=== PATIENT | male | born 1985 | race Caucasian/White ===

== ENCOUNTER → 2018-01-18 | Outpatient (CLI) | payer OTHER ==
[~2018-01-18] MED LIST: NAPROSYN500 MG PO; ZOFRAN ODT4 MG PO
== END ==
LOC: ULTRA 07:54
DX: R10.32 Left lower quadrant pain (principal)

== ENCOUNTER 2019-03-06 08:29 | Emergency (ER) | payer OTHER ==
[~2019-03-06] VITALS: Ht 177.8 cm; Wt 81.7 kg
[2019-03-06 09:09] LABS: HEMATOCRIT 49.3 % (42.0-52.0); HEMOGLOBIN 17.4 gm/dL (14.0-18.0); MCH 32.3 pg (26.0-34.0); MCHC 35.2 g/dL (28.0-37.0); MCV 91.6 fL (80.0-100.0); RBC 5.39 mil/uL (4.50-6.00); RDW 12.5 % (10.5-14.5); WBC 7.2 thou/uL (4.0-11.0)
[2019-03-06 09:17] LABS: CALCIUM 9.4 mg/dL (8.5-10.1); CREATININE 0.8 mg/dL (0.7-1.3); POTASSIUM 4.2 mmol/L (3.5-5.1)
[2019-03-06 10:10] VITALS: BP 120/81
== END 2019-03-06 10:10 | disposition home or self-care (01) ==
LOC: ER 08:29
PROVIDERS: Emergency Medicine
DX: M54.2 Cervicalgia (principal); R04.2 Hemoptysis; F17.210 Nicotine dependence, cigarettes, uncomplicated

== ENCOUNTER → 2019-03-06 | Outpatient (CLI) | payer OTHER | LOC: ULTRA 12:34 | DX: R59.1 Generalized enlarged lymph nodes (principal) ==

== ENCOUNTER → 2019-03-12 | Outpatient (CLI) | payer OTHER ==
--- NOTE | 2019-03-14 17:06 | PATH ---
[facility] [address] [place] [address] PATHOLOGY RPT PROCEDURE Name: DEZ NIEVES YUDITH Room #: REG CLI MCallie.#: [id number] ������������������ Admission: 03/12/19 ������������������ Date of : 83 Discharge: Report #: [id number] Path Case #: [id number] [facility] Accession Number: [id number] . 01 Material submitted: . lymph node - RIGHT LYMPH NODE, NECK. Modifiers: right, neck . 01 Clinical history: . Right lymph nodes enlarged x 3 months . 02 Diagnosis: Lymph node, neck lymph node, needle core biopsy: - Reactive lymph node with sinus histiocytosis (please see comment). (IUV:millinery blocker; 03/14/2019) . Please see included [facility] report [id number]. AZJ/03/14/2019 . 02 Comment: Portion of this sample obtained at the time of the procedure was sent for flow cytometric analysis, result number [id number] (please see separate report for details). That analysis showed no significant lymphoid immunophenotypic abnormalities detected. . Morphologically, the lymph node tissue shows germinal centers and small lymphocytes. Occasional to rare poorly formed granuloma is identified. Giant cells are not present to support a well-formed granuloma. There are no atypical or markedly enlarged lymphocytes, there is no nuclear pleomorphism present. There are no Moises-Lisa cells identified as well. Overall, morphologically, the lymph node appears reactive. . Acid fast bacillus and Gomori methenamine silver stains performed on A1 are negative for mycobacterial as well as fungal elements, respectively. . Dr. Desirae Maguire has seen this case and concurs with my diagnosis. . The differential diagnosis for the poorly formed granulomatous inflammation may include reactive changes, Bartonella henselae infection (cat scratch disease), atypical mycobacterial as well as mycobacterial infections, fungal infections, and a reaction to drug/medication effect as well. Sarcoidosis-like granulomas are not identified. . Please note sample represents a minute portion of a larger lesion and may not be entirely bilingual sales representative. Clinical correlation is required. . (IUV:millinery blocker; 03/14/2019) . [address] [address] PATHOLOGY RPT PROCEDURE Name: DEZ NIEVES Room #: REG CL Teo#: [id number] ������������������ Admission: 03/12/19 ������������������ Date of : 83 Discharge: Report #: [id number] Path Case #: [id number] Electronically signed: . Iliana Woods MD, Pathologist NPI- [id number] . 01 Gross description: . The specimen is received in formalin, labeled "Dez Nieves, right neck node biopsy", are several roca fragments of needle cores measuring 0.7 x 0.2 x 0.1 cm in aggregate. The specimen is entirely submitted in A1-A2. Also received is an RPMI tube labeled with patient name and "right lymph node BX", consist of a minute soft tissue fragment. This is forwarded for additional studies. (SWS; 03/12/2019) . . . . SHS/SHS . 02 Microscopic: . Special studies report received from [facility], [address] [place] [address], [address], [place], [address], on case [id number], labeled with their number [id number], dated 03/14/2019. . Flow Cytometry: Hematologic Neoplasia Assessment . Clinical History Enlarged lymph nodes, right . Indication for Study Evaluation for lymphadenopathy . Specimen Lymph Node, Right . Viability 88% (7AAD exclusion) . Interpretation Lymph Node, Right: - No significant lymphoid immunophenotypic abnormalities detected (see comment). . Comments There are no significant immunophenotypic abnormalities in this specimen. It is of note that non- hematolymphoid neoplasms, Hodgkin lymphoma, some T-cell lymphomas and some large cell lymphomas cannot be totally excluded based solely on flow cytometry analysis. Correlation with available clinical, laboratory, and morphologic data is recommended. [address] [address] PATHOLOGY RPT PROCEDURE Name: DEZ NIEVES Room #: REG [facility]#: [id number] ������������������ Admission: 03/12/19 ������������������ Date of : 83 Discharge: Report #: [id number] Path Case #: [id number] . Populations Analyzed Lymphocytes: 84% B-cells: 17.4%, polytypic/polyclonal sIg light chain pattern T-cells: no significant abnormalities of the markers tested CD4:CD8: 6.3 NK cells: 0.6% CD45 Negative 16% No significant reactivity with the markers tested Events/Debris: (may represent non-hematolymphoid cells, degenerated cells, debris, unlysed red blood cells, etc.) . Morphologic Evaluation A slide was reviewed for auditor/quality purposes only. . Specimen Description Total Cell Yield: 0.59 X 10 and 6 . Reagent(s) Used CD2, CD3, CD4, CD5, CD7, CD8, CD10, CD11b, CD19, CD20, CD23, CD30, CD38, CD43, CD45, CD56, CD57, FMC-7, HLA-DR, kappa, lambda . at [facility] [employer] Britany Hernández MD Pathologist . . Intended Use Flow cytometry is optimally used to immunophenotypically characterize abnormal populations when they are detected. Negative flow cytometry results do not exclude lymphoma or neoplasia. Possible false negative flow cytometry results may occur in, but are not limited to, the following: neoplastic cells in Hodgkin lymphoma are not typically adequately represented by routine clinical flow cytometry; neoplastic cells may be lost or inadequately represented due to degeneration, sample processing, sampling artifact, or patchy involvement; plasma cells are typically underrepresented by flow cytometry; immature cells/blasts may be underrepresented due to hemodilution; myeloproliferative disorders and low grade myelodysplasia may not have immunophenotypic abnormalities or increased blasts. Correlation with all available clinical, laboratory, and morphologic data is always necessary to assess for the possibility of false negative flow cytometry results and to establish a diagnosis. Each marker in this analysis was used to assess for potential antigenic abnormalities or to evaluate detected abnormalities. . Disclaimer(s) This test was performed at [facility]. at [address] [place] [address] [place] [address] PATHOLOGY RPT PROCEDURE Name: DEZ NIEVES Room #: REG [facility].#: [id number] ������������������ Admission: 03/12/19 ������������������ Date of : 83 Discharge: Report #: [id number] Path Case #: [id number] [address], [place], [address] - Machine Tool Rebuilder: Edd Cochran MD. [facility] is a business unit of [employer] a wholly-owned subsidiary of [employer]. . Any image or images that accompany this report are bilingual sales representative images only and should not be used to render a diagnosis. . This test was developed and its performance characteristics determined by [facility]. It has not been cleared or approved by the Food and Drug Administration (FDA). The FDA has determined that such clearance or approval is not necessary. . For inquiries, the physician may contact Lab: [phone] . A complete copy of the report is on file. . Professional services performed by [facility]. at [address], [place] [address]. Technical services performed by [facility] at [address], [place] [address]. . (AMJ 03/14/2019) . . 02 Pathologist provided ICD-10: D76.3 . 02 CPT . 497519, 093457, 329115 Specimen Comment: A courtesy copy of this report has been sent to Specimen Comment: [phone], , . Specimen Comment: Report sent to ,DR MARTINEZ / DR GREEN Performed at: [address], [place] [id number] MD Venkatesh Mathias MD Phone: [phone] Performed at: [address] [id number] MD Iliana Woods MD Phone: [phone]
== END | disposition home or self-care (01) ==
LOC: ULTRA 09:00
DX: D76.3 Other histiocytosis syndromes (principal); R59.0 Localized enlarged lymph nodes; Z79.1 Long term (current) use of non-steroidal anti-inflammatories (NSAID)